=== PATIENT | female | born 1995 | race African-American/Black ===

== ENCOUNTER 2021-03-20 23:53 | Emergency (ER) | payer SELFPAY ==
[2021-03-21 00:06] VITALS: BP 134/95; PULSE 98; TEMP 98.1; BMI 27.0
== END 2021-03-21 02:42 | disposition home or self-care (01) ==
LOC: JER 23:53
DX: F10.10 Alcohol abuse, uncomplicated (principal)
CPT/HCPCS: 99283-25

== ENCOUNTER 2024-01-07 15:16 | Inpatient (IN) | payer OTHER ==
[2024-01-07 16:03] VITALS: BMI 37.1
[2024-01-07] MEDS ORDERED: POLYETHYLENE GLYCOL (HEALTHYLAX) 3350 17 GM PACKET PO PRN (17:47)
[2024-01-07] MEDS ORDERED: NALOXONE (NARCAN) HCL 4 MG/0.1 ML SPRAY NS PRN (17:47)
[2024-01-07] MEDS ORDERED: hydrOXYzine PAMOATE 25 MG CAPSULE (FP) PO PRN (17:47)
[2024-01-07] MEDS ORDERED: MAGNESIUM HYDROX 2400MG/30ML ORAL SUSPENSION 30 ML CUP PO PRN (17:47)
[2024-01-07] MEDS ORDERED: IBUPROFEN 600 MG TABLET (FP) PO PRN (17:47)
[2024-01-07] MEDS ORDERED: LOPERAMIDE HCL 2 MG CAPSULE PO PRN (17:47)
[2024-01-07] MEDS ORDERED: BENZOCAINE/MENTHOL (CHLORASEPTIC ) LOZENGE MM PRN (17:47)
[2024-01-07] MEDS ORDERED: guaiFENesin 600 MG TABLET.ER (FP) PO PRN (17:47)
[2024-01-07] MEDS ORDERED: NALOXONE HCL 0.4 MG/ML VIAL IM PRN (17:47)
[2024-01-07] MEDS ORDERED: BENZONATATE 200 MG CAPSULE PO PRN (17:47)
[2024-01-07] MEDS ORDERED: MAG HYDROX/AL HYDROX/SIMETH 30 ML UNIT-DOSE CUP PO PRN (17:47)
[2024-01-07] MEDS: NICOTINE POLACRILEX 2 MG GUM BUC PRN (19:43)
[2024-01-07] MEDS: hydrOXYzine PAMOATE 50 MG CAPSULE (FP) PO ONE (20:00)
[2024-01-07] MEDS: hydrOXYzine PAMOATE 50 MG CAPSULE (FP) PO SCH (21:23)
[2024-01-07] MEDS: TOPIRAMATE 25 MG TABLET PO SCH (22:08)
[2024-01-07] MEDS: MELATONIN 5 MG TABLETS PO SCH (22:08)
[2024-01-07] MEDS: GABAPENTIN 400 MG CAPSULE PO SCH (22:08)
[2024-01-07] MEDS: THIAMINE 100 MG TABLET PO SCH (22:08)
[2024-01-07 23:24] LABS: EPI CELLS >36 /uL (0-25.1); HYALINE CASTS 0 /uL (0-3.1); URINE APPEARANCE CLOUDY; URINE BACTERIA 2896 /uL (0-1359); URINE BILIRUBIN NEGATIVE (NEGATIVE); URINE COLOR YELLOW; URINE GLUCOSE (UA) NEGATIVE (NEGATIVE); URINE KETONE NEGATIVE (NEGATIVE); URINE LEUK ESTERASE 2+ (NEGATIVE); URINE NITRITE NEGATIVE (NEGATIVE); URINE PROTEIN NEGATIVE (NEGATIVE); URINE RBC 8 /uL (0-23.9); URINE UROBILINOGEN 0.2 mg/dL (0.2-1.0); URINE WBC 87 /uL (0-25.8)
[2024-01-08] MEDS: metFORMIN HCL 500 MG TABLET (FP) PO SCH (06:22)
[2024-01-08] MEDS: INSULIN ASPART SLIDING SCALE (NOVOLOG) 1 VIAL SQ SCH (06:25)
[2024-01-08] MEDS: NICOTINE 14 MG/24 HOURS TOPICAL PATCH TD SCH (10:52)
[2024-01-08] MEDS: PRENATAL VITAMINS W/ FOLIC ACID TABLET (FP) PO SCH (10:52)
[2024-01-08] MEDS ORDERED: TUBERCULIN PPD 5 TU/0.1ML VIAL ID ONE (10:53)
[2024-01-08] MEDS: VENLAFAXINE HCL 150 MG E.R. CAPSULE PO SCH (12:46)
[2024-01-08] MEDS: traZODone HCL 100 MG TABLET (FP) PO SCH (22:06)
[2024-01-08] MEDS: PRAZOSIN HCL 1 MG CAPSULE PO SCH (22:06)
[2024-01-08] MEDS: ACETAMINOPHEN 325 MG TABLET (FP) PO PRN (22:09)
[2024-01-10] MEDS: NALOXONE (NYS OPIOID OVERDOSE PROGRAM) 4 MG/0.1 ML SPRAY NS ONE (14:56)
[2024-01-10 15:43] VITALS: RESP 18
[2024-01-10] MEDS ORDERED: INSULIN (NOVOLOG) ASPART 100 UNITS/ML 10ML VIAL ONE (16:55)
[2024-01-11 13:28] LABS: HEMATOCRIT 33.8 % (32.4-45.2); HEMOGLOBIN 10.9 GM/dL (10.7-15.3); MCH 22.2 pg (25.7-33.7); MCHC 32.2 g/dl (32.0-36.0); MEAN CELL VOLUME 68.9 fl (80-96); PLATELET COUNT 588 10^3/uL (134-434); RDW 25.2 % (11.6-15.6); WHITE BLOOD COUNT 7.5 K/mm3 (4.0-10.0)
[2024-01-11 14:42] LABS: POTASSIUM 4.3 mmol/L (3.5-5.1)
[2024-01-11 14:43] LABS: ALBUMIN 4.2 g/dl (3.4-5.0); CALCIUM 10.1 mg/dL (8.5-10.1)
[2024-01-11 14:44] LABS: BLOOD UREA NITROGEN 9.6 mg/dL (7-18)
[2024-01-11 14:48] LABS: BILIRUBIN,TOTAL 0.2 mg/dL (0.2-1); TOT PROT 8.3 g/dl (6.4-8.2)
[2024-01-11] MEDS ORDERED: NALOXONE (NYS OPIOID OVERDOSE PROGRAM) 4 MG/0.1 ML SPRAY NS PRN (14:59)
[2024-01-11] MEDS ORDERED: INSULIN (NOVOLOG) ASPART 100 UNITS/ML 10ML VIAL ONE (16:46)
[2024-01-11] MEDS: NICOTINE POLACRILEX 2 MG GUM BUC PRN (18:54)
[2024-01-12] MEDS ORDERED: INSULIN (NOVOLOG) ASPART 100 UNITS/ML 10ML VIAL ONE (05:55)
[2024-01-12 07:34] VITALS: BP 130/76; PULSE 99; TEMP 97.3
[2024-01-12] MEDS: NICOTINE 21 MG/24 HOURS TOPICAL PATCH TD SCH (10:28)
[2024-01-12] MEDS: IBUPROFEN 400 MG TABLET (FP) PO PRN (13:38)
[2024-01-12] MEDS: hydrOXYzine PAMOATE 50 MG CAPSULE (FP) PO PRN (14:42)
== END 2024-01-12 15:48 | disposition left against medical advice (07) | DRG 770 ==
LOC: YASAS 15:16 → Y3NR 17:27 → Y5N 01-10 12:00
PROVIDERS: ADMIT Psychiatry & Neurology Pain Medicine; ATTEND Psychiatry & Neurology Pain Medicine
PROC: HZ42ZZZ Group Counseling for Substance Abuse Treatment, Cognitive-Behavioral (ICD-10-PCS; principal; 2024-01-07)
DX: F10.20 Alcohol dependence, uncomplicated (principal); F17.210 Nicotine dependence, cigarettes, uncomplicated; F31.9 Bipolar disorder, unspecified; F41.9 Anxiety disorder, unspecified; F90.9 Attention-deficit hyperactivity disorder, unspecified type; E11.9 Type 2 diabetes mellitus without complications; Z79.84 Long term (current) use of oral hypoglycemic drugs; Z86.711 Personal history of pulmonary embolism
CPT/HCPCS: 36415; 80053; 80305; 80307; 81003; 82140; 82962; 85027; 86780; 87811; 93005; 93010